=== PATIENT | male | born 1965 | race Caucasian/White ===

== ENCOUNTER 2018-03-09 14:20 | Inpatient (IN) | payer MEDICAID ==
[~2018-03-09] VITALS: Ht 182.9 cm; Wt 99.8 kg
[2018-03-09] MEDS ORDERED: TAMS-11 PO (14:27)
[2018-03-09] MEDS ORDERED: SODIUM CHLORIDE 0.9% 1,000 ML IV ONE (17:15)
[2018-03-09] MEDS ORDERED: MORPHINE SULFATE 4 MG/ML CPJ (NOT FOR IM USE) IV STA (17:15)
[2018-03-09] MEDS ORDERED: ONDANSETRON HCL 4MG/2ML INJ IV STA (17:15)
[2018-03-09 18:08] LABS: BASOPHILS % 0.4 % (0.0-2.0); EOSINOPHILS % 0.2 % (0.0-5.0); HEMATOCRIT. 38.2 % (42.0-52.0); HEMOGLOBIN. 12.4 g/dL (14.0-18.0); LYMPHOCYTES % 12.2 % (20.0-50.0); MEAN CORPUSCULAR HEMOGLOBIN 25.8 pg (28.0-32.0); MEAN CORPUSCULAR VOLUME 79.4 fL (80.0-94.0); MEAN PLATELET VOLUME 8.5 fl (7.4-10.4); MONOCYTES % 5.3 % (2.0-8.0); NEUTROPHILS % 81.9 % (40.0-76.0); PLATELET 369 x1000/uL (130-400); RED BLOOD CELL COUNT 4.81 mill/uL (4.7-6.1); RED CELL DISTRIBUTION WIDTH 14.5 % (11.6-14.6)
[2018-03-09 18:14] LABS: CHLORIDE 94 mEq/L (98-107)
[2018-03-09 18:17] LABS: INR 1.1; PARTIAL THROMBOPLASTIN TIME 31.7 sec (23.4-31.0); PROTHROMBIN TIME 10.7 sec (9.1-11.1)
[2018-03-09] MEDS ORDERED: CEFTRIAXONE 1 G PREMIX 50 ML IV ONE (19:15)
[2018-03-09] MEDS ORDERED: IPRATROPIUM/ALBUTEROL 0.5-3(2.5)MG/3ML NEB INH PRN (20:30)
[2018-03-09] MEDS ORDERED: HYDROCODONE/ACETAMINOPHEN 5/325MG TABLET PO PRN (20:30)
[2018-03-09] MEDS ORDERED: MAGNESIUM/ALUMINUM HYDROXIDE/SIMETHICONE 30ML UDC PO PRN (20:30)
[2018-03-09] MEDS ORDERED: CLONIDINE 0.1MG TABLET PO PRN (20:30)
[2018-03-09] MEDS ORDERED: ONDANSETRON HCL 4MG/2ML INJ IV ONE (20:30)
[2018-03-09] MEDS ORDERED: ACETAMINOPHEN 325MG TABLET PO PRN (20:30)
[2018-03-09] MEDS ORDERED: ONDANSETRON HCL 4MG/2ML INJ IV PRN (20:30)
[2018-03-09] MEDS ORDERED: DOCUSATE SODIUM 100MG CAPSULE PO PRN (20:30)
[2018-03-09] MEDS ORDERED: MORPHINE SULFATE 4 MG/ML CPJ (NOT FOR IM USE) IV ONE (20:30)
[2018-03-09] MEDS ORDERED: GUAIFENESIN 200MG/10ML SUGAR FREE UDC PO PRN (20:30)
[2018-03-09] MEDS ORDERED: LORAZEPAM 2MG/ML CPJ IV ONE (20:30)
[2018-03-09] MEDS ORDERED: DIPHENHYDRAMINE 50MG/ML VIAL IV PRN (20:30)
[2018-03-09 20:51] LABS: CLARITY URINE CLOUDY (CLEAR); COLOR URINE RED (YELLOW); KETONES URINE NEGATIVE (NEGATIVE); LEUKOCYTE ESTERASE URINE 2+ (NEGATIVE); NITRITE URINE POSITIVE (NEGATIVE); OCCULT BLOOD URINE 3+ (NEGATIVE); PROTEIN URINE 3+ (NEGATIVE); SPECIFIC GRAVITY URINE 1.011 (1.005-1.030); UROBILINOGEN URINE 0.2 E.U./dL (0.2-1.0)
[2018-03-09 21:10] LABS: PHOSPHORUS 2.7 mg/dL (2.5-4.9)
[2018-03-09 22:45] VITALS: BP 135/68
[2018-03-10] LABS: INR 1.1; PARTIAL THROMBOPLASTIN TIME 30.6 sec (23.4-31.0); PROTHROMBIN TIME 11.4 sec (9.1-11.1)
[2018-03-10 07:37] LABS: BASOPHILS % 0.5 % (0.0-2.0); EOSINOPHILS % 0.7 % (0.0-5.0); HEMATOCRIT. 29.7 % (42.0-52.0); HEMOGLOBIN. 9.7 g/dL (14.0-18.0); LYMPHOCYTES % 12.4 % (20.0-50.0); MEAN CORPUSCULAR HEMOGLOBIN 25.7 pg (28.0-32.0); MEAN CORPUSCULAR VOLUME 78.7 fL (80.0-94.0); MEAN PLATELET VOLUME 8.5 fl (7.4-10.4); MONOCYTES % 9.2 % (2.0-8.0); NEUTROPHILS % 77.2 % (40.0-76.0); PLATELET 255 x1000/uL (130-400); RED BLOOD CELL COUNT 3.77 mill/uL (4.7-6.1); RED CELL DISTRIBUTION WIDTH 14.3 % (11.6-14.6)
[2018-03-10 07:56] LABS: CHLORIDE 106 mEq/L (98-107)
[2018-03-10 08:00] VITALS: BP 112/64
[2018-03-10 08:14] LABS: LDL CHOLESTEROL 68 mg/dL (5-100)
[2018-03-10 08:15] LABS: HDL CHOLESTEROL 30 mg/dL (40-59)
[2018-03-10 12:00] VITALS: BP 129/79
[2018-03-10 16:00] VITALS: BP 119/75
[2018-03-10] MEDS: CEFTRIAXONE 1 G PREMIX 50 ML IV SCH (18:27)
[2018-03-10 20:00] VITALS: BP 127/55
[2018-03-11] VITALS: BP 130/64
[2018-03-11 04:00] VITALS: BP 102/57
[2018-03-11 06:22] LABS: CHLORIDE 104 mEq/L (98-107)
[2018-03-11 06:23] LABS: BASOPHILS % 0.5 % (0.0-2.0); EOSINOPHILS % 1.5 % (0.0-5.0); HEMATOCRIT. 29.4 % (42.0-52.0); HEMOGLOBIN. 9.4 g/dL (14.0-18.0); LYMPHOCYTES % 21.8 % (20.0-50.0); MEAN CORPUSCULAR HEMOGLOBIN 25.5 pg (28.0-32.0); MEAN CORPUSCULAR VOLUME 79.7 fL (80.0-94.0); MEAN PLATELET VOLUME 8.5 fl (7.4-10.4); MONOCYTES % 11.1 % (2.0-8.0); NEUTROPHILS % 65.1 % (40.0-76.0); PLATELET 253 x1000/uL (130-400); RED BLOOD CELL COUNT 3.69 mill/uL (4.7-6.1); RED CELL DISTRIBUTION WIDTH 14.4 % (11.6-14.6)
[2018-03-11 08:00] VITALS: BP 126/79
[2018-03-11 12:00] VITALS: BP 122/73
[2018-03-11 16:00] VITALS: BP 109/60
[2018-03-11] MEDS: CEFTRIAXONE 1 G PREMIX 50 ML IV SCH (18:31)
[2018-03-11 20:00] VITALS: BP 146/93
[2018-03-12] VITALS: BP 131/72
[2018-03-12 08:00] VITALS: BP 123/72
[2018-03-12] MEDS ORDERED: NITR-87 MT (11:11)
[2018-03-12] MEDS ORDERED: CIPR500S3 PO (12:18)
[2018-03-12] MEDS ORDERED: FINA5TAB11 MT (12:18)
[2018-03-12] MEDS ORDERED: TAMS-11 MT (12:18)
[2018-03-12 13:25] LABS: BASOPHILS % 0.8 % (0.0-2.0); EOSINOPHILS % 2.1 % (0.0-5.0); HEMATOCRIT. 29.6 % (42.0-52.0); HEMOGLOBIN. 9.7 g/dL (14.0-18.0); LYMPHOCYTES % 19.2 % (20.0-50.0); MEAN CORPUSCULAR VOLUME 79.4 fL (80.0-94.0); MEAN PLATELET VOLUME 8.4 fl (7.4-10.4); MONOCYTES % 9.6 % (2.0-8.0); NEUTROPHILS % 68.3 % (40.0-76.0); PLATELET 279 x1000/uL (130-400); RED BLOOD CELL COUNT 3.73 mill/uL (4.7-6.1); RED CELL DISTRIBUTION WIDTH 14.5 % (11.6-14.6)
[2018-03-12 13:41] LABS: CHLORIDE 104 mEq/L (98-107)
[2018-03-12] MEDS: CEFTRIAXONE 1 G PREMIX 50 ML IV SCH (18:21)
[2018-03-12 20:00] VITALS: BP 123/70
[2018-03-13] VITALS: BP 125/63
[2018-03-13 04:00] VITALS: BP 128/76
[2018-03-13 08:00] VITALS: BP 112/75
[2018-03-13 11:17] LABS: HEMATOCRIT 28.7 % (42.0-52.0); HEMOGLOBIN 9.2 g/dL (14.0-18.0); MEAN CORPUSCULAR HEMOGLOBIN 25.6 pg (28.0-32.0); MEAN CORPUSCULAR VOLUME 79.7 fL (80.0-94.0); PLATELET 270 x1000/uL (130-400); RED CELL DISTRIBUTION WIDTH 14.6 % (11.6-14.6)
[2018-03-13 12:04] VITALS: BP 118/74
[2018-03-13] MEDS ORDERED: LORAZEPAM 0.5MG TABLET PO PRN (15:45)
[2018-03-13 16:00] VITALS: BP 133/80
[2018-03-13] MEDS ORDERED: MORPHINE SULFATE 4 MG/ML CPJ (NOT FOR IM USE) IV PRN (18:00)
[2018-03-13] MEDS: CEFTRIAXONE 1 G PREMIX 50 ML IV SCH (18:05)
[2018-03-13 20:00] VITALS: BP 157/91
[2018-03-14] VITALS: BP 138/81
[2018-03-14 04:00] VITALS: BP 121/64
[2018-03-14 07:11] LABS: CHLORIDE 107 mEq/L (98-107)
[2018-03-14 07:12] LABS: BASOPHILS % 0.4 % (0.0-2.0); EOSINOPHILS % 2.2 % (0.0-5.0); HEMATOCRIT. 27.2 % (42.0-52.0); HEMOGLOBIN. 8.8 g/dL (14.0-18.0); LYMPHOCYTES % 24.8 % (20.0-50.0); MEAN CORPUSCULAR HEMOGLOBIN 25.6 pg (28.0-32.0); MEAN CORPUSCULAR VOLUME 79.3 fL (80.0-94.0); MEAN PLATELET VOLUME 8.6 fl (7.4-10.4); MONOCYTES % 11.1 % (2.0-8.0); NEUTROPHILS % 61.5 % (40.0-76.0); PLATELET 242 x1000/uL (130-400); RED BLOOD CELL COUNT 3.44 mill/uL (4.7-6.1); RED CELL DISTRIBUTION WIDTH 14.4 % (11.6-14.6)
[2018-03-14 08:00] VITALS: BP 119/74
[2018-03-14 12:00] VITALS: BP 121/67
[2018-03-14 16:00] VITALS: BP 107/53
[2018-03-14] MEDS: CEFTRIAXONE 1 G PREMIX 50 ML IV SCH (18:09)
[2018-03-14 20:00] VITALS: BP 129/76
[2018-03-15] VITALS: BP 126/81
[2018-03-15 04:00] VITALS: BP 123/76
[2018-03-15 07:23] LABS: BASOPHILS % 0.6 % (0.0-2.0); EOSINOPHILS % 2.7 % (0.0-5.0); HEMOGLOBIN. 9.9 g/dL (14.0-18.0); LYMPHOCYTES % 21.3 % (20.0-50.0); MEAN CORPUSCULAR HEMOGLOBIN 25.7 pg (28.0-32.0); MEAN CORPUSCULAR VOLUME 80.1 fL (80.0-94.0); MEAN PLATELET VOLUME 8.5 fl (7.4-10.4); MONOCYTES % 9.5 % (2.0-8.0); NEUTROPHILS % 65.9 % (40.0-76.0); PLATELET 330 x1000/uL (130-400); RED BLOOD CELL COUNT 3.87 mill/uL (4.7-6.1); RED CELL DISTRIBUTION WIDTH 14.9 % (11.6-14.6)
[2018-03-15 07:45] LABS: CHLORIDE 105 mEq/L (98-107)
[2018-03-15 08:00] VITALS: BP 130/74
[2018-03-15] MEDS: CEFTRIAXONE 1 G PREMIX 50 ML IV SCH (17:42)
[2018-03-15] MEDS ORDERED: MAGNESIUM HYDROXIDE 400MG/5ML 30ML UDC PO NR (17:45)
[2018-03-15] MEDS ORDERED: BISACODYL 10MG SUPP PR NR (17:45)
[2018-03-15 20:00] VITALS: BP 135/81
[2018-03-15] MEDS: TAMSULOSIN HCL 0.4MG SR CAPSULE PO SCH (20:43)
[2018-03-16] VITALS: BP 110/64
[2018-03-16 06:00] VITALS: BP 112/62
[2018-03-16] MEDS: TAMSULOSIN HCL 0.4MG SR CAPSULE PO SCH (09:50)
[2018-03-16 12:00] VITALS: BP 127/77
[2018-03-16 13:25] VITALS: BP 127/77
[2018-03-16 16:00] VITALS: BP 129/76
[2018-03-16 20:00] VITALS: BP 122/72
== END 2018-03-17 00:28 | disposition short-term general hospital (02) | DRG 463 ==
LOC: ER 14:20 → 6EST 20:04 → ENRESERV 20:57
PROVIDERS: ADMIT Internal Medicine; ATTEND Internal Medicine
DX: N39.0 Urinary tract infection, site not specified (principal); E83.52 Hypercalcemia; E87.8 Other disorders of electrolyte and fluid balance, not elsewhere classified; E87.1 Hypo-osmolality and hyponatremia; D64.9 Anemia, unspecified; N28.89 Other specified disorders of kidney and ureter; R31.0 Gross hematuria
CPT/HCPCS: 36415; 80048; 80061; 83735; 84100; 84443; 85027; 93970; 96361; 96374; 96375; 96376; 99285; J0696; J1200; J2060; J2270; J2405; J7030; J7040; A4315

== ENCOUNTER 2020-09-19 19:36 | Inpatient (IN) | payer OTHER ==
[~2020-09-19] VITALS: Ht 180.3 cm; Wt 63.0 kg
[~2020-09-19 19:36] MED LIST: AXIT5TAB PO; CIPR500S3 PO; FINA5TAB11 MT; FURO-151 MT; LACT10SO7 MT; SPIR25TA6 MT; TAMS-11 MT
[2020-09-19] MEDS ORDERED: ONDANSETRON HCL 4MG/2ML INJ IV STA (21:51)
[2020-09-19] MEDS ORDERED: HYDROMORPHONE HCL/PF 2MG/ML CPJ IV ONE (22:00)
[2020-09-19] MEDS ORDERED: SODIUM CHLORIDE 0.9% 1,000 ML IV ONE ×2 (22:00→22:45)
[2020-09-19 22:29] LABS: BASOPHILS % 0.7 % (0.0-2.0); EOSINOPHILS % 0.1 % (0.0-5.0); HEMOGLOBIN. 12.3 g/dL (14.0-18.0); LYMPHOCYTES % 8.3 % (20.0-50.0); MEAN CORPUSCULAR HEMOGLOBIN 26.8 pg (28.0-32.0); MEAN CORPUSCULAR VOLUME 80.6 fL (80.0-94.0); MEAN PLATELET VOLUME 7.5 fl (7.4-10.4); MONOCYTES % 6.8 % (2.0-8.0); NEUTROPHILS % 84.1 % (40.0-76.0); PLATELET 934 x1000/uL (130-400); RED BLOOD CELL COUNT 4.59 mill/uL (4.7-6.1)
[2020-09-19 22:36] LABS: CHLORIDE 98 mEq/L (98-107)
[2020-09-19 22:38] LABS: PROTHROMBIN TIME 10.9 sec (9.6-11.0)
[2020-09-19] MEDS ORDERED: CEFTRIAXONE 2 G PREMIX 50 ML IV ONE (22:45)
[2020-09-19] MEDS ORDERED: SODIUM BICARBONATE 8.4% 1 MEQ/ML 50ML SYR IV ONE (23:45)
[2020-09-19] MEDS ORDERED: DEXTROSE 50% WATER 50ML SYRINGE IV ONE (23:45)
[2020-09-19] MEDS ORDERED: INSULIN REGULAR (HUMULIN R) 300UNITS/3ML VIAL IV ONE (23:45)
[2020-09-20 01:43] LABS: CLARITY URINE CLEAR (CLEAR); COLOR URINE YELLOW (YELLOW); KETONES URINE NEGATIVE (NEGATIVE); LEUKOCYTE ESTERASE URINE NEGATIVE (NEGATIVE); NITRITE URINE NEGATIVE (NEGATIVE); OCCULT BLOOD URINE NEGATIVE (NEGATIVE); PROTEIN URINE TRACE (NEGATIVE); SPECIFIC GRAVITY URINE 1.019 (1.005-1.030)
[2020-09-20] MEDS ORDERED: HYDROCODONE/ACETAMINOPHEN 10/325MG TABLET PO PRN (08:15)
[2020-09-20] MEDS ORDERED: ONDANSETRON HCL 4MG/2ML INJ IV PRN (08:15)
[2020-09-20] MEDS ORDERED: PIPERACILLIN/TAZOBACTAM 3.375 G in DEXTROSE 5% WATER 50 ML IV SCH (08:30)
[2020-09-20] MEDS ORDERED: NALOXONE HCL 0.4MG/ML VIAL IV PRN (08:30)
[2020-09-20] MEDS ORDERED: AXIT5TAB PO (09:01)
[2020-09-20] MEDS ORDERED: HYDR5SOL2 PO (09:01)
[2020-09-20] MEDS ORDERED: LEVO250T58 MT (09:01)
[2020-09-20 12:00] VITALS: BP 107/62
[2020-09-20 12:04] LABS: CHLORIDE 103 mEq/L (98-107)
[2020-09-20] MEDS ORDERED: SODIUM POLYSTYRENE SULFONATE 15 G/60 ML BOT PO SCH (12:45)
[2020-09-20] MEDS: MORPHINE SULFATE 2 MG/ML CPJ (NOT FOR IM USE) IV PRN ×2 (15:28→16:09)
[2020-09-20 16:00] VITALS: BP 100/59
[2020-09-20] MEDS: PIPERACILLIN/TAZOBACTAM 2.25G in DEXTROSE 5% WATER 50ML IV SCH ×3 (16:09→22:26)
[2020-09-20 17:17] VITALS: BP 107/64
[2020-09-20 20:00] VITALS: BP 129/74
[2020-09-20] MEDS: HYDROMORPHONE HCL/PF 2MG/ML CPJ IV PRN (20:54)
[2020-09-21] VITALS: BP 100/60
[2020-09-21] MEDS: HYDROMORPHONE HCL/PF 2MG/ML CPJ IV PRN ×3 (02:23→17:10)
[2020-09-21 04:00] VITALS: BP 101/57
[2020-09-21] MEDS: PIPERACILLIN/TAZOBACTAM 2.25G in DEXTROSE 5% WATER 50ML IV SCH ×3 (04:28→16:57)
[2020-09-21 06:01] LABS: BASOPHILS % 0.7 % (0.0-2.0); EOSINOPHILS % 0.4 % (0.0-5.0); HEMATOCRIT. 28.6 % (42.0-52.0); HEMOGLOBIN. 9.2 g/dL (14.0-18.0); LYMPHOCYTES % 15.3 % (20.0-50.0); MEAN CORPUSCULAR HEMOGLOBIN 26.1 pg (28.0-32.0); MEAN CORPUSCULAR VOLUME 81.2 fL (80.0-94.0); MEAN PLATELET VOLUME 7.6 fl (7.4-10.4); MONOCYTES % 10.3 % (2.0-8.0); NEUTROPHILS % 73.3 % (40.0-76.0); PLATELET 570 x1000/uL (130-400); RED BLOOD CELL COUNT 3.52 mill/uL (4.7-6.1); RED CELL DISTRIBUTION WIDTH 16.6 % (11.6-14.6)
[2020-09-21 06:19] LABS: CHLORIDE 101 mEq/L (98-107)
[2020-09-21 08:00] VITALS: BP 111/68
[2020-09-21] MEDS ORDERED: POLYETHYLENE GLYCOL 3350 (17GM) 1 DOSE PACK PO SCH (09:00)
[2020-09-21 12:00] VITALS: BP 115/65
[2020-09-21 16:00] VITALS: BP 117/66
[2020-09-21] MEDS ORDERED: HYDR4TAB4 MT (16:49)
[2020-09-21] MEDS ORDERED: CIPR500S3 PO (16:49)
[2020-09-21] MEDS ORDERED: MORP30TA54 MT (16:49)
[2020-09-21 18:38] VITALS: BP 117/66
[2020-09-22] MEDS ORDERED: POLY119P2 MT (08:54)
== END 2020-09-21 19:28 | disposition home health service (06) | DRG 249 ==
LOC: ER 19:36 → MICUSO 23:43 → 8WST 09-20 07:15
PROVIDERS: ADMIT Internal Medicine; ATTEND Internal Medicine
DX: K52.9 Noninfective gastroenteritis and colitis, unspecified (principal); N17.0 Acute kidney failure with tubular necrosis; E43 Unspecified severe protein-calorie malnutrition; R18.8 Other ascites; C64.9 Malignant neoplasm of unspecified kidney, except renal pelvis; C78.00 Secondary malignant neoplasm of unspecified lung; E87.1 Hypo-osmolality and hyponatremia; C78.7 Secondary malignant neoplasm of liver and intrahepatic bile duct; D64.9 Anemia, unspecified; E87.5 Hyperkalemia; Z85.528 Personal history of other malignant neoplasm of kidney; Z79.2 Long term (current) use of antibiotics; Z79.899 Other long term (current) drug therapy; Z79.84 Long term (current) use of oral hypoglycemic drugs; Z68.1 Body mass index [BMI] 19.9 or less, adult
CPT/HCPCS: 36415; 74174; 74176; 80048; 80053; 81003; 82962; 83605; 85025; 93005; 99285; C1893; J0696; J1170; J1815; J2270; J2405; J2543; J3490; J7030; J7040; J7060